=== PATIENT | female | born 1990 | race Caucasian/White ===

== ENCOUNTER 2017-04-13 21:52 | Emergency (ER) | payer OTHER ==
[2017-04-13 22:07] VITALS: BP 123/79; PULSE 98; RESP 16; TEMP 97.4; O2SAT 99
[2017-04-13] MEDS ORDERED: LIDOCAINE HCL 1% MPF SOL ONE (22:27)
[2017-04-13] MEDS ORDERED: LIDOCAINE HCL 1% MDV SOL SC ONE (22:45)
[2017-04-13] MEDS ORDERED: BACITRACIN 500 U/GM OIN TOP ONE ×2 (22:48→23:30)
== END 2017-04-13 23:23 | disposition home or self-care (01) | DRG 605 ==
LOC: ED 21:52
DX: S61.411A Laceration without foreign body of right hand, initial encounter (principal); S66.821A Laceration of other specified muscles, fascia and tendons at wrist and hand level, right hand, initial encounter; S61.212A Laceration without foreign body of right middle finger without damage to nail, initial encounter; W22.8XXA Striking against or struck by other objects, initial encounter
CPT/HCPCS: 12002; 73130; 99284; A6402; J2001

== ENCOUNTER 2017-09-02 17:08 | Emergency (ER) | payer OTHER ==
[2017-09-02] MEDS ORDERED: LORAZEPAM 2 MG/ML SOL IM ONE (17:47)
[2017-09-02 17:51] LABS: BASOPHILS % (AUTO) 1 % (0-3); EOSINOPHILS % (AUTO) 1 % (0-9); HEMATOCRIT 40 % (35-47); MEAN CORPUSCULAR HGB CONC 35.8 gm/dl (32.0-36.0); NEUTROPHILS % (AUTO) 61.7 % (37-80)
[2017-09-02 17:53] LABS: MEAN CORPUSCULAR VOLUME 79 fL (81-99)
[2017-09-02 18:06] VITALS: BP 115/63; PULSE 105; RESP 24; TEMP 97.6; O2SAT 96
[2017-09-02 18:13] LABS: ALBUMIN 4.1 gm/dl (3.4-5.0); CALCIUM 9.1 mg/dl (8.5-10.1); POTASSIUM 3.8 mMol/L (3.5-5.1); THYROID STIMULATING HORMONE 1.164 uIU/ml (0.358-3.740)
[2017-09-02 19:45] LABS: APPEARANCE,URINE Clear; BILIRUBIN,URINE NEGATIVE (NEGATIVE); COLOR,URINE Yellow; GLUCOSE, URINE (UA) NEGATIVE (NEGATIVE); KETONES,URINE NEGATIVE (NEGATIVE); LEUKOCYTE ESTERASE ,URINE NEGATIVE (NEGATIVE); NITRATE,URINE NEGATIVE (NEGATIVE); OCCULT BLOOD,URINE NEGATIVE (NEG-TRACE); UROBILINOGEN,URINE 0.2 (0.2-1.0 EU)
[2017-09-02 19:56] LABS: AMPHETAMINES POSITIVE (NEGATIVE); METHADONE NEGATIVE (NEGATIVE); OPIATES(OP13) NEGATIVE (NEGATIVE); OXYCODONE(OXY) NEGATIVE (NEGATIVE); PROPOXYPHENE(PPX) NEGATIVE (NEGATIVE); RBC,URINE NEG (0-3AV/HPF); TRICYCLIC ANTIDEPRESSANTS NEGATIVE (NEGATIVE); WBC,URINE NEG (0-5AV/HPF)
== END 2017-09-02 20:49 | DRG 880 ==
LOC: ED 17:08
DX: R45.851 Suicidal ideations (principal); F12.10 Cannabis abuse, uncomplicated; F15.10 Other stimulant abuse, uncomplicated
CPT/HCPCS: 36415; 80053; 80305; 80307; 81001; 84443; 84703; 85025; 99284

== ENCOUNTER 2017-11-23 22:28 | Inpatient (IN) | payer MEDICAID, OTHER ==
[2017-11-23 22:53] LABS: BASOPHILS % (AUTO) 1 % (0-3); EOSINOPHILS % (AUTO) 2 % (0-9); HEMATOCRIT 42 % (35-47); MEAN CORPUSCULAR HGB CONC 34.3 gm/dl (32.0-36.0); MEAN CORPUSCULAR VOLUME 82 fL (81-99); MONOCYTES % (AUTO) 7.3 % (0-12); NEUTROPHILS % (AUTO) 71.4 % (37-80)
[2017-11-23 23:17] LABS: ALBUMIN 4.4 gm/dl (3.4-5.0); CALCIUM 8.7 mg/dl (8.5-10.1); POTASSIUM 3.5 mMol/L (3.5-5.1); THYROID STIMULATING HORMONE 12.856 uIU/ml (0.358-3.740)
[2017-11-24] MEDS ORDERED: SODIUM CHLORIDE 0.9% 1000ML 1,000 ML IV ONE (00:01)
[2017-11-24] MEDS ORDERED: LORAZEPAM 2 MG/ML SOL ONE (00:07)
[2017-11-24] MEDS ORDERED: LORAZEPAM 2 MG/ML SOL IV ONE (00:07)
[2017-11-24 00:19] LABS: APPEARANCE,URINE Clear; BILIRUBIN,URINE NEGATIVE (NEGATIVE); COLOR,URINE Yellow; GLUCOSE, URINE (UA) NEGATIVE (NEGATIVE); KETONES,URINE NEGATIVE (NEGATIVE); LEUKOCYTE ESTERASE ,URINE NEGATIVE (NEGATIVE); NITRATE,URINE NEGATIVE (NEGATIVE); OCCULT BLOOD,URINE NEGATIVE (NEG-TRACE); UROBILINOGEN,URINE 0.2 (0.2-1.0 EU)
[2017-11-24 00:30] LABS: RBC,URINE NEG (0-3AV/HPF); WBC,URINE NEG (0-5AV/HPF)
[2017-11-24 00:31] LABS: AMPHETAMINES NEGATIVE (NEGATIVE); METHADONE NEGATIVE (NEGATIVE); OPIATES(OP13) NEGATIVE (NEGATIVE); OXYCODONE(OXY) NEGATIVE (NEGATIVE); PROPOXYPHENE(PPX) NEGATIVE (NEGATIVE); TRICYCLIC ANTIDEPRESSANTS NEGATIVE (NEGATIVE)
[2017-11-24] MEDS ORDERED: ACETAMINOPHEN 500 MG 500 MG TAB PO ONE (01:35)
[2017-11-24] MEDS ORDERED: ACETAMINOPHEN 500 MG 500 MG TAB ONE (01:36)
[2017-11-24] MEDS ORDERED: LORAZEPAM 2 MG/ML 10ML MDV 2 MG/ML VIAL IV PRN (01:39)
[2017-11-24] MEDS ORDERED: ACETAMINOPHEN 325 MG PO PRN (01:40)
[2017-11-24] MEDS ORDERED: LEVONORGESTREL IU SCH (01:45)
[2017-11-24] MEDS ORDERED: SODIUM CHLORIDE 0.9% 1000ML 1,000 ML IV SCH (02:00)
[2017-11-24] MEDS ORDERED: PATIENT EDUCATION 1 MISC PRN (03:14)
[2017-11-24 09:43] VITALS: BP 113/70; PULSE 82; RESP 18; TEMP 98.1; O2SAT 97
[2017-11-24] MEDS ORDERED: LORAZEPAM 0.5 MG TAB PO ONE ×2 (11:57→11:58)
== END 2017-11-24 15:15 | disposition home or self-care (01) | DRG 101 ==
LOC: ED 22:28 → ACUTE CARE 11-24 01:17
PROVIDERS: ADMIT Family Medicine; ATTEND Family Medicine
DX: R56.9 Unspecified convulsions (principal); E03.9 Hypothyroidism, unspecified
CPT/HCPCS: 36415; 70450; 70551; 80053; 80305; 80307; 81001; 83735; 84443; 84703; 85025; 93012; 96365; 99221; 99285; J2060; A9270-GY

== ENCOUNTER 2017-11-27 13:53 | Emergency (ER) | payer MEDICAID ==
[2017-11-27 14:10] VITALS: TEMP 98.8
[2017-11-27 16:19] VITALS: BP 96/59; PULSE 73; RESP 19; O2SAT 99
== END 2017-11-27 15:56 | disposition home or self-care (01) | DRG 950 ==
LOC: ED 13:53
DX: S27.321D Contusion of lung, unilateral, subsequent encounter (principal); R07.9 Chest pain, unspecified
CPT/HCPCS: 71275; 94150; 99283; Q9967

== ENCOUNTER 2018-03-03 13:43 | Observation (INO) | payer MEDICAID, OTHER ==
[2018-03-03] MEDS ORDERED: SODIUM CHLORIDE 0.9% 1000ML 1,000 ML IV ONE (14:00)
[2018-03-03 14:19] LABS: BASOPHILS % (AUTO) 1 % (0-3); EOSINOPHILS % (AUTO) 3 % (0-9); HEMATOCRIT 38 % (35-47); HEMOGLOBIN 13.3 gm/dl (12.0-15.5); LYMPHOCYTES % (AUTO) 35.4 % (10-50); MEAN CORPUSCULAR HEMOGLOBIN 28.9 pg (27.0-32.0); MEAN CORPUSCULAR HGB CONC 35.4 gm/dl (32.0-36.0); MEAN CORPUSCULAR VOLUME 82 fL (81-99); MONOCYTES % (AUTO) 7.9 % (0-12); NEUTROPHILS % (AUTO) 53.2 % (37-80)
[2018-03-03 14:34] LABS: ALBUMIN 3.6 gm/dl (3.4-5.0); BILIRUBIN,TOTAL 0.3 mg/dl (0.2-1.0); CALCIUM 8.2 mg/dl (8.5-10.1); CARBON DIOXIDE 26.8 mEq/L (21-32); CREATININE 0.75 mg/dl (0.60-1.00); MAGNESIUM 1.8 mg/dl (1.8-2.4); POTASSIUM 3.7 mMol/L (3.5-5.1); TOTAL PROTEIN 7.1 gm/dl (6.4-8.2)
[2018-03-03 14:46] LABS: AMPHETAMINES NEGATIVE (NEGATIVE); BARBITUATES NEGATIVE (NEGATIVE); BENZODIAZEPINES NEGATIVE (NEGATIVE); CANNABINOL(THC) NEGATIVE (NEGATIVE); COCAINE(COC) NEGATIVE (NEGATIVE); METHADONE NEGATIVE (NEGATIVE); METHAMPHETAMINES NEGATIVE (NEGATIVE); OPIATES(OP13) NEGATIVE (NEGATIVE); OXYCODONE(OXY) NEGATIVE (NEGATIVE); PROPOXYPHENE(PPX) NEGATIVE (NEGATIVE); TRICYCLIC ANTIDEPRESSANTS NEGATIVE (NEGATIVE)
[2018-03-03] MEDS ORDERED: LEVETIRACETAM (PREMIX) 1 GM 1 GM/100 ML SOL IV ONE ×4 (16:10→16:19)
[2018-03-03 18:04] VITALS: RESP 16
[2018-03-03] MEDS ORDERED: IBUPROFEN 600 MG TAB PO PRN (18:50)
[2018-03-03] MEDS: ACETAMINOPHEN 500 MG 500 MG TAB PO PRN (19:26)
[2018-03-03] MEDS: LEVETIRACETAM 250 MG TAB PO SCH (20:28)
[2018-03-03] MEDS: SODIUM CHLORIDE 0.9% FLUSH 10 ML SOL IV SCH (20:30)
[2018-03-03 20:45] VITALS: O2SAT 98
[2018-03-03] MEDS ORDERED: TRAZODONE HYDROCHLORIDE 50 MG TAB PO SCH (21:00)
[2018-03-04] MEDS: ACETAMINOPHEN 500 MG 500 MG TAB PO PRN (03:47)
[2018-03-04] MEDS: SODIUM CHLORIDE 0.9% FLUSH 10 ML SOL IV SCH (06:00)
[2018-03-04 09:17] VITALS: BP 98/62; PULSE 73; TEMP 98.7
[2018-03-04] MEDS: LEVETIRACETAM 250 MG TAB PO SCH (09:58)
== END 2018-03-04 10:00 | disposition home or self-care (01) | DRG 101 ==
LOC: ED 13:43 → ACUTE CARE 17:25 → UNDOADMOB 17:44 → ACUTE CARE 17:44
PROVIDERS: ADMIT Emergency Medicine; ATTEND Emergency Medicine
DX: G40.909 Epilepsy, unspecified, not intractable, without status epilepticus (principal)
CPT/HCPCS: 36415; 70450; 80053; 80305; 83735; 84703; 85025; 96365; 96366; 99217; 99219; 99285; A9270-GY; J1953

== ENCOUNTER 2018-10-24 16:11 | Emergency (ER) | payer MEDICAID, OTHER ==
[2018-10-24] MEDS ORDERED: FENTANYL 100MCG/2ML SOL IV ONE (16:13)
[2018-10-24 16:15] VITALS: TEMP 97.9
[2018-10-24] MEDS ORDERED: FENTANYL 100MCG/2ML SOL ONE (16:23)
[2018-10-24] MEDS ORDERED: HYDRALAZINE HYDROCHLORIDE 20 MG/ML SOL ONE (16:49)
[2018-10-24 17:05] VITALS: BP 128/74; PULSE 101; RESP 18; O2SAT 94
== END 2018-10-24 16:59 | disposition home or self-care (01) | DRG 563 ==
LOC: ED 16:11
DX: S93.402A Sprain of unspecified ligament of left ankle, initial encounter (principal); W00.0XXA Fall on same level due to ice and snow, initial encounter
CPT/HCPCS: 73600; 96374; 99283; 99284; J0360; J3010; E0114

== ENCOUNTER 2019-06-03 18:34 | Emergency (ER) | payer MEDICAID, OTHER ==
[2019-06-03 18:59] VITALS: RESP 20; TEMP 98.3
[2019-06-03 19:37] LABS: APPEARANCE,URINE Clear; BILIRUBIN,URINE NEGATIVE (NEGATIVE); COLOR,URINE Yellow; GLUCOSE, URINE (UA) NEGATIVE (NEGATIVE); KETONES,URINE NEGATIVE (NEGATIVE); LEUKOCYTE ESTERASE ,URINE NEGATIVE (NEGATIVE); NITRATE,URINE NEGATIVE (NEGATIVE); OCCULT BLOOD,URINE NEGATIVE (NEG-TRACE); UROBILINOGEN,URINE 0.2 (0.2-1.0 EU)
[2019-06-03 19:38] LABS: BACTERIA 1+ (< 1+); CRYSTALS NEGATIVE (0-3 AVE/HPF); RBC,URINE 0-2 (0-3AV/HPF); WBC,URINE 0-2 (0-5AV/HPF)
[2019-06-03 21:19] VITALS: BP 117/72; PULSE 102; O2SAT 99
== END 2019-06-03 21:00 | disposition short-term general hospital (02) | DRG 392 ==
LOC: ED 18:34
DX: R10.9 Unspecified abdominal pain (principal); Z3A.33 33 weeks gestation of pregnancy; M54.9 Dorsalgia, unspecified; W01.0XXA Fall on same level from slipping, tripping and stumbling without subsequent striking against object, initial encounter
CPT/HCPCS: 59025; 81001; 84112; 99283; 99284